=== PATIENT | male | born 1955 | race Caucasian/White ===

== ENCOUNTER 2017-03-09 08:38 | Day surgery (SDC) | payer OTHER ==
--- NOTE | 2017-03-01 16:24 | HISTORY AND PHYSICAL ---
ADMITTED: 03/09/2017 CHIEF COMPLAINT: 1. Pain and triggering of the right middle finger HISTORY OF PRESENT ILLNESS: The patient has had a triggering problem with the right middle finger for some time now. He has had separate injections, the first one was somewhat helpful, and the second one I gave him here more recently he said did not do any good at all, and he continues with triggering and pain of the finger and is here for trigger finger release. MEDICAL/SURGICAL HISTORY: The patient's past history is positive in that he has had also a carpal tunnel syndrome on the left hand. He has had a previous fracture of his left calcaneus. He has an epicondylitis of his right elbow, and he more recently also is having some what sounds like radial tunnel symptoms, with zingers and pain down the dorsum of the right thumb primarily, but over the dorsum of the hands and fingers of both hands periodically when he extends his hands. His past history is otherwise positive in that he suffers from thyroid disease, hypertension, and hyperlipidemia. MEDICATIONS: 1. Percocet, which he takes on a p.r.n. basis for pain. 2. Pravastatin 80 mg, he takes daily. 3. Levothyroxine 175 mcg daily. 4. Atenolol 50 mg daily. 5. Aspirin 325 mg daily. ALLERGIES: 1. NO KNOWN ALLERGIES. SOCIAL HISTORY: Nonsmoker. FAMILY HISTORY: Noncontributory. REVIEW OF SYSTEMS: PHYSICAL EXAMINATION: HEENT: Shows the head to be normocephalic and atraumatic. His hearing is grossly normal. There is no drainage from the ear canals. The face is symmetrical. NECK: No jugular venous distention. HEART: Regular rate and rhythm without murmur. CHEST: Symmetrical. LUNGS: Clear to auscultation. EXTREMITIES: He has no visible spinal deformity. He has no abdominal distention. For the right hand exam, I will refer to my previous clinic notes, but his fingers are warm and pink. He has no edema. He has full active range of motion. There is some tenderness and catching in the volar aspect of the right middle finger, overlying the A1 jessica at the MP joint. IMPRESSION: 1. Triggering of the right long finger PLAN: The plan will be for trigger finger release. I have explained to him where the incision would be, the risk of neurovascular damage, and continued pain with his surgery. He would like to proceed with it. We will plan to do it within the next week, barring unforeseen complication or problem.
[~2017-03-09] VITALS: Ht 180.3 cm; Wt 69.9 kg
[~2017-03-09 08:38] MED LIST: ASPIRIN EC325 MG PO; ASPIRIN325 MG PO; ATENOLOL50 MG PO; LANSOPRAZOLE30 MG PO; LEVOTHYROXINE100 MCG PO; MULTIPLE VITAMIN PO; PERCOCET1 TA1 PO; PRAVASTATIN SOD80 MG PO
--- NOTE | 2017-03-09 11:21 | Postoperative Progress Note ---
Postop Progress Note Preoperate Diagnosis: Trigger RLF Postoperative Diagnosis: Same Surgeon: Isidoro Hoang MD Anesthesia: Lexi Block Findings: Trigger RLF Procedure: Trigger finger release RLF Complications? No Condition: Stable EBL: 0 Blood Administered: 0 Specimen(s) removed? No Grafts or Implants? No . (See nursing notes for details of grafts/implants)
[2017-03-09] MEDS ORDERED: PERCOCET1 TA1 PO (11:25)
--- NOTE | 2017-03-09 11:26 | Provider's Discharge Care Plan ---
Problem, Goal, Plan Problem List 1. Trigger finger of right hand
--- NOTE | 2017-03-09 11:26 | Provider's Discharge Care Plan ---
Problem, Goal, Plan Problem List 1. Trigger finger of right hand
--- NOTE | 2017-03-09 11:58 | OPERATIVE REPORT ---
DATE OF SURGERY: 03/09/2017 SURGEON: LEONILA JUÁREZ MD PREOPERATIVE DIAGNOSIS: 1. Triggering of the right long finger POSTOPERATIVE DIAGNOSIS: 1. Triggering of the right long finger PROCEDURE PERFORMED: 1. The operation proposed was release of the right long finger, A1 jessica, and the operation performed was release of the right long finger, A1 jessica ESTIMATED BLOOD LOSS: None. COMPLICATIONS: None. PATHOLOGY SPECIMEN: None. SURGICAL TECHNIQUE: The patient was taken to the operating room. He was given a Lexi block and some IV sedation. Hand was prepped and draped in the usual sterile fashion. We made a slightly oblique longitudinal incision directly over the A1 jessica on the volar aspect of the hand, carried down through subcutaneous tissue. Under direct visualization, we then opened the A1 jessica and freed the flexor tendons. No damage occurred to the tendons or neurovascular structures; all appeared to be well. He had closure of the wound with 3-0 Polysorb subcuticular closure. It was dressed with Xeroform and gauze, wrapped with sterile Webril and then Issa bandage loosely applied. He was awakened and taken to the recovery room in stable condition.
[2017-03-09 12:46] VITALS: BP 122/77
== END 2017-03-09 12:50 | disposition home or self-care (01) ==
LOC: SDC SRH 08:38 → SCU SRH 08:38 → OR SRH 10:30 → SDC SRH 10:30
PROVIDERS: Orthopaedic Surgery
PROC: 0LN70ZZ Release Right Hand Tendon, Open Approach (ICD-10-PCS; principal; 2017-03-09 10:30)
DX: M65.331 Trigger finger, right middle finger (principal)
CPT/HCPCS: 29229; 29240; 50004; 60001; 80011; 84038